=== PATIENT | male | born 1965 | race Asian ===

== ENCOUNTER 2016-09-13 00:39 | Inpatient (IN) | payer MEDICAID ==
[~2016-09-13] VITALS: Ht 167.6 cm; Wt 67.2 kg
--- NOTE | 2016-09-13 00:41 | NUR ---
Patient was BIBA and taken to bed 04 via gurney per EMS. [place] [employer] at bedside.
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
[2016-09-13 00:49] VITALS: BP 116/89
[2016-09-13] MEDS ORDERED: NACL 0.9% 1,000 ML IV ONE (00:55)
[2016-09-13] MEDS ORDERED: LORazepam 2 MG/ML VIAL IVP ONE (00:55)
--- NOTE | 2016-09-13 01:01 | NUR ---
Dr. Beverly evaluating patient at bedside.
--- NOTE | 2016-09-13 06:00 | NUR ---
ASLEEP W/O DISTRESS NOTED. V/S WNL.CONTINUE MONITORING PT.
--- NOTE | 2016-09-13 07:10 | NUR ---
RECEIVED REPORT FROM VAISHALI HALL
--- NOTE | 2016-09-13 07:20 | NUR ---
Nelson luz in [facility] - 09/13/16 at 0722 by MATTEO RECEIVED REPORT FROM VAISHALI HALL
--- NOTE | 2016-09-13 07:23 | NUR ---
REPORT GIVEN TO ASHOK TOM.
--- NOTE | 2016-09-13 07:25 | NUR ---
Patient appears to be resting comfortably in bed. Vital Signs within normal limits. Respirations even and unlabored.WILL CONTINUE TO MONITOR.
--- NOTE | 2016-09-13 08:30 | NUR ---
Patient appears to be SLEEPING comfortably in bed. Vital Signs within normal limits. Respirations even and unlabored.WILL CONTINUE TO MONITOR.
--- NOTE | 2016-09-13 09:36 | NUR ---
Patient appears to be SLEEPING comfortably in bed. Vital Signs within normal limits. Respirations even and unlabored.WILL CONTINUE TO MONITOR.
--- NOTE | 2016-09-13 10:40 | NUR ---
Patient appears to be SLEEPING comfortably in bed. Vital Signs within normal limits. Respirations even and unlabored.WILL CONTINUE TO MONITOR.
--- NOTE | 2016-09-13 10:48 | NUR ---
Nelson luz in ED - 09/13/16 at 1113 by MED1 Patient appears to be SLEEPING comfortably in bed. Vital Signs within normal limits. Respirations even and unlabored.WILL CONTINUE TO MONITOR.
--- NOTE | 2016-09-13 10:58 | NUR ---
Notified Dr. Snowden's group of requested Psych consultation.
--- NOTE | 2016-09-13 11:50 | NUR ---
Patient appears to be SLEEPING comfortably in bed. Vital Signs within normal limits. Respirations even and unlabored.WILL CONTINUE TO MONITOR.
[2016-09-13] MEDS ORDERED: LORazepam 2 MG/ML VIAL IVP PRN (12:05)
[2016-09-13] MEDS ORDERED: MORPHINE SULFATE 2 MG/ML SYR IVP PRN (12:05)
[2016-09-13] MEDS ORDERED: ACETAMINOPHEN 325 MG TAB PO PRN (12:05)
[2016-09-13] MEDS ORDERED: ONDANSETRON 4 MG/2 ML VIAL IVP PRN (12:05)
[2016-09-13] MEDS ORDERED: HYDROcodone/APAP 5/325 MG 1 TAB TAB PO PRN (12:05)
--- NOTE | 2016-09-13 12:58 | NUR ---
Patient appears to be SLEEPING comfortably in bed. Vital Signs within normal limits. Respirations even and unlabored.WILL CONTINUE TO MONITOR.
--- NOTE | 2016-09-13 13:21 | NUR ---
GAVE REPORT TO VAISHALI ANGULO
--- NOTE | 2016-09-13 13:25 | NUR ---
Patient will be admitted to care of [facility]. Admited to ICU. Will go to room3. Belongings list completed. Report to VAISHALI ANGULO.
--- NOTE | 2016-09-13 13:35 | NUR ---
RECEIVED PT FROM VAISHALI MARQUEZ. PT AAO X4, RESPIRATORY STATUS WNL, SR ON THE MONITOR, OR BOWEL SOUNDS PRESENT TO ALL QUADS, ABLE TO MOVE ALL EXTREMITIES, NO S/S OF ANY DISTRESS NOTED, PT DENIES OF HAVING FEELING OF HURTING SELF AND OTHERS, ABLE TO VERBALIZE HIS BASIC NEEDS, WILL CONTINUE TO MONITOR.
[2016-09-13 14:02] VITALS: BP 118/84
--- NOTE | 2016-09-13 14:20 | NUR ---
MESSAGE LEFT FOR DR. ROBLEDO CONSULTATION AND FACE SHEET FAXED.
--- NOTE | 2016-09-13 14:30 | NUR ---
PT OFFERED LATE LUNCH TRAY. PT EATING AT THIS TIME
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
[2016-09-13] MEDS: NACL 0.9% 1,000 ML IV SCH (14:41)
--- NOTE | 2016-09-13 15:01 | NUR ---
PT ASLEEP AT THIS TIME
[2016-09-13] MEDS ORDERED: KCL 20 MEQ/WATER INJ PREMIX 100 ML IV ONE (15:20)
--- NOTE | 2016-09-13 15:45 | NUR ---
PT'S ACQUAINTANCE, SANAZ, CALLED ICU. NOTIFIED SANAZ THAT PT IS SLEEPING AT THIS TIME. PER PT, ONLY GIVE INFORMATION TO PT'S SISTER, LYNETTE, OR HIS NIECE, SHANNA. PT REQUESTS NO VISITORS AT THIS TIME.
[2016-09-13 16:00] VITALS: BP 121/86
--- NOTE | 2016-09-13 16:28 | NUR ---
CALLED DR. GUERRA FOR MRSA SWAB ORDER AND THAT IV KCL IS IRRITATING PATIENT'S VEINS. NEW IV WAS PUT IN, BUT IRRITATION CONTINUED. MD WILL PUT IN ORDER FOR PO POTASSIUM. WILL FOLLOW UP ON ORDERS.
--- NOTE | 2016-09-13 16:30 | NUR ---
PER HONG JOYA TO STOP IV KCL. MD WILL PUT IN ORAL POTASSIUM.
--- NOTE | 2016-09-13 16:30 | NUR ---
PT AAO X 4, NO S/S OF ANY DISTRESS, WILL CONTINUE TO MONITOR.
--- NOTE | 2016-09-13 16:42 | NUR ---
PER PT, OK TO HAVE CRYSTAL VISITOR, BUT ONLY GIVE INFORMATION TO SISTER AND NIECE CHARTED BEFORE.
[2016-09-13] MEDS ORDERED: POTASSIUM CHLORIDE 10 MEQ TABER PO SCH (17:15)
--- NOTE | 2016-09-13 17:57 | NUR ---
PT HAD DINNER 100 % CONSUMED
--- NOTE | 2016-09-13 18:46 | NUR ---
PAGED DR. GIL,
--- NOTE | 2016-09-13 19:11 | NUR ---
REPORT GIVEN TO VAISHALI DIANE
--- NOTE | 2016-09-13 19:12 | NUR ---
RECEIVED REPORT FROM VAISHALI ANGULO. INITIAL ASSESSMENT COMPLETED. PT IS ASLEEP, AROUSABLE TO VERBAL STIMULI. PT DENIES ANY SUICIDAL THOUGHTS, DENIES HURTING HIMSELF OR OTHER PEOPLE. PT IS AWAKE ALERT ORIENTED X4. ATTACHED TO TASSEL SNIPPER, PULSE OXIMETER. IV ACCESS AT LEFT AC 20G AND RIGHT FOREARM 20G. PATENT, INTACT AT THIS TIME. PT ABLE TO MOVE ALL EXTREMITIES. URINAL AT BEDSIDE. BED IN LOW POSITION. SAFETY MEASURE ENSURE. WILL CONTINUE TO MONITOR CLOSELY.
[2016-09-13 20:00] VITALS: BP 112/67
--- NOTE | 2016-09-13 20:00 | NUR ---
DR. GIL INFORMED THAT PATIENT WAS SEEN BY THE PSYCHOLOGIST DR. THEODORE AND PER HER RECOMMENDATION PATIENT CAN GO HOME, DR. GIL SAID " OH HE WILL STAY THERE FOR TONIGHT". PROGRAM REVIEW DIRECTOR EULA BENTLEY NOTIFIED.
[2016-09-14] VITALS: BP 113/69
--- NOTE | 2016-09-14 00:46 | NUR ---
NO SIGNS OF DISTRESS, PT ASLEEP.
[2016-09-14 02:00] VITALS: BP 110/58
[2016-09-14] MEDS: NACL 0.9% 1,000 ML IV SCH (02:28)
--- NOTE | 2016-09-14 02:30 | NUR ---
PT IS ASLEEP. WILL CONTINUE TO MONITOR.
[2016-09-14 04:00] VITALS: BP 119/83
--- NOTE | 2016-09-14 04:30 | NUR ---
PT ASLEEP. NO SIGNS OF SUICIDAL IDEATION.
--- NOTE | 2016-09-14 05:30 | NUR ---
PT REFUSED MORNING CARE AT THIS TIME.
--- NOTE | 2016-09-14 06:45 | NUR ---
AMPHIBIOUS OPERATIONS OFFICER AT BEDSIDE.
--- NOTE | 2016-09-14 07:21 | NUR ---
REPORT GIVEN TO VAISHALI DENNISON FOR CONTINUITY OF CARE.
--- NOTE | 2016-09-14 07:23 | NUR ---
RECEIVED REPORT FROM VAISHALI MCCORMICK. NO SIGNS OF ACUTE DISTRESS AT THIS TIME, NO C/O PAIN. PT IS ON ROOM AIR. PT IS AAOX4. IV TO LEFT AC #20 AND RIGHT FOREARM #20 PATENT AND INTACT. PT IS ON INSULIN DRIP AT 12 UNITS/HR. SKIN IS INTACT. SAFETY PRECAUTIONS IN PLACE WITH BED IN LOW POSITION AND SIDE RAILS UP X2. CALL LIGHT WITHIN REACH. PT IS CURRENTLY SINUS TACHYCARDIA ON THE MONITOR. WILL CONTINUE TO MONITOR. Addendum: 09/14/16 at 0754 by Maribell Helm RN CHARTED INSULIN DRIP ON WRONG PT. Addendum: 09/14/16 at 0757 by Maribell Helm RN CHARTED SINUS TACHYCARDIA ON WRONG PT. PT IS CURRENTLY SINUS RHYTHM.
[2016-09-14 08:00] VITALS: BP 95/71
--- NOTE | 2016-09-14 08:15 | NUR ---
PT TOLERATED MEDS WELL.
[2016-09-14] MEDS ORDERED: OLANZapine 5 MG TAB PO SCH (09:00)
--- NOTE | 2016-09-14 10:04 | NUR ---
CALLED DR. GIL REGARDING POSSIBLE D/C IF MEDICALLY CLEAR. INFORMED HE WILL BE IN SHORTLY TO ROUND ON THE PT.
--- NOTE | 2016-09-14 11:23 | NUR ---
CHECKED ON PT. RESTING AT THIS TIME, AROUSABLE. CALL LIGHT WITHIN REACH. WILL CONTINUE TO MONITOR.
--- NOTE | 2016-09-14 11:24 | NUR ---
DR. GIL AND DR. GUERRA PRESENT AT BEDSIDE. WILL FOLLOW UP ON ORDERS.
--- NOTE | 2016-09-14 11:31 | NUR ---
PT HAS CHOSEN TO LEAVE AMA. RISKS ASSOCIATED WITH LEAVING AMA EXPLAINED BY DR. GIL AND DR. GUERRA. PT STILL VERBALIZED THAT HE WOULD LIKE TO LEAVE AMA. AMA FORM SIGNED BY MD'S AND PT. PLACED IN PT'S CHART.
--- NOTE | 2016-09-14 11:50 | NUR ---
IV'S HAVE BEEN DC'ED WITH CANNULAS INTACT. WRIST BANDS REMOVED. ALL BELONGINGS IN PT POSSESSION. AWAITING ARRIVAL OF TAXI AT THIS TIME.
--- NOTE | 2016-09-14 11:50 | NUR ---
CALLED [facility] FOR PT PICKUP. INFORMED RIDE WILL BE HERE WITHIN THE NEXT HALF HOUR.
[2016-09-14 12:00] VITALS: BP 143/71
--- NOTE | 2016-09-14 12:18 | NUR ---
[facility] HAS ARRIVED FOR PT PICKUP. OFFERED WHEELCHAIR, BUT PT REFUSED. PT AMBULATES WITH STEADY GAIT. IOS SOFTWARE ENGINEER NOTIFIED. PT LEFT UNIT IN STABLE CONDITION.
== END 2016-09-14 12:20 | disposition left against medical advice (07) | DRG 460 ==
LOC: MED 00:39 → MIC 12:05
PROVIDERS: ADMIT Family Medicine; ATTEND Family Medicine
DX: N17.0 Acute kidney failure with tubular necrosis (principal); I42.7 Cardiomyopathy due to drug and external agent; R45.851 Suicidal ideations; F20.9 Schizophrenia, unspecified; F14.90 Cocaine use, unspecified, uncomplicated; F15.188 Other stimulant abuse with other stimulant-induced disorder; F12.10 Cannabis abuse, uncomplicated; F17.210 Nicotine dependence, cigarettes, uncomplicated; Z53.21 Procedure and treatment not carried out due to patient leaving prior to being seen by health care provider; Z71.51 Drug abuse counseling and surveillance of drug abuser; Z56.0 Unemployment, unspecified; Z87.442 Personal history of urinary calculi; Z59.0 Homelessness

== ENCOUNTER 2017-03-23 06:50 | Emergency (ER) | payer OTHER ==
[~2017-03-23] VITALS: Ht 167.6 cm; Wt 68.0 kg
--- NOTE | 2017-03-23 06:50 | NUR ---
[employer] [employer] TO ER OF1
[2017-03-23 06:55] VITALS: BP 126/71
--- NOTE | 2017-03-23 07:10 | NUR ---
Patient being evaluated by physician.
[2017-03-23 07:20] VITALS: BP 126/71
--- NOTE | 2017-03-23 07:20 | NUR ---
Patient discharged with v/s stable. Written and verbal after care instructions given and explained. Patient verbalized understanding. Police with in custody. All questions addressed prior to discharge. Advised to follow up with PMD.
== END 2017-03-23 07:20 ==
LOC: MED 06:50
DX: Z02.89 Encounter for other administrative examinations (principal)
CPT/HCPCS: 99283